=== PATIENT | male | born 1995 | race Caucasian/White ===

== ENCOUNTER 2021-03-24 00:43 | Emergency (ER) | payer MEDICAID ==
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
[2021-03-24] MEDS ORDERED: Nicotine 21 MG/24 Hr Patch TRDERM SCH (16:00)
--- NOTE | 2021-03-24 19:15 | CRLCR ---
For Patients: As a result of the Cures Act, medical imaging exams and procedure reports are released immediately into your electronic medical record. You may view this report before your referring provider. If you have questions, please contact your health care provider. INDICATION: neck injury, hanging CERVICAL SPINE FINDINGS: No acute fractures are identified. Osseous alignment is unremarkable and no subluxation is seen. Prevertebral soft tissues appear normal. Included portions of the airway and lung apices are within normal limits. IMPRESSION: No fracture, subluxation, or other acute finding identified in the cervical spine. TREY BUENO MD [facility] Dictated by: Kar Bueno MD @ 03/24/2021 19:13:59 (Electronically Signed)
== END 2021-03-24 21:30 ==
LOC: JP.ED 00:43
DX: R45.851 Suicidal ideations (principal); Z20.822 Contact with and (suspected) exposure to COVID-19
CPT/HCPCS: 36415; 72040; 80053; 80305-QW; 80307; 81001; 85025; 99285; A9270-GY; U0002